=== PATIENT | male | born 1995 | race Caucasian/White ===

== ENCOUNTER 2017-08-29 14:44 | Inpatient (IN) | payer OTHER ==
[2017-08-29] MEDS ORDERED: SODIUM CHLORIDE 0.9% 500 ML INFUS.BAG IV ONE (15:01)
[2017-08-29] MEDS ORDERED: CLINDAMYCIN 600MG PREMIX IVPB 600 MG/50 ML BAG IVPB ONE ×3 (15:01→23:11)
[2017-08-29] MEDS ORDERED: DEXAMETHASONE SOD PHOSPHATE 10 MG/1 ML VIAL IVPUSH ONE (15:01)
--- NOTE | 2017-08-29 15:03 | PDOC ---
Rapid Medical Evaluation Time Seen by Provider: 08/29/17 14:56 Medical Evaluation: I have performed a brief in-person evaluation of this patient. The patient presents with a chief complaint of: Dr. Jacob sent him to r/o peritonsillar abscess. Patient was treated for strep 1 week ago at [place]. Strep and mono cultures were negative. Patient now with swollen neck. Pertinent physical exam findings: hard and soft palate deformity, worse on right side. 3 finger breath trismus. exudate noted on b/l tonsils. swelling to b/l neck. I have ordered the following: IV insert, IV decadron, IV clinda, CT soft tissue neck, labs The patient will proceed to the ED for further evaluation. Discharge Disposition - Diagnosis Peritonsillar abscess - Referrals - Patient Instructions - Post Discharge Activity
[2017-08-29 15:26] LABS: BASO % 0.6 % (0-2.0); EOS % 0.5 % (0-4.5); HEMATOCRIT 44.1 % (35.4-49); HEMOGLOBIN 15.6 GM/dL (11.7-16.9); LYMPH % 16.1 % (8-40); MCH 31.4 pg (25.7-33.7); MCHC 35.3 g/dl (32.0-35.9); MEAN CELL VOLUME 88.8 fl (80-96); MEAN PLT VOLUME 7.8 fl (7.5-11.1); NEUT % 69.8 % (42.8-82.8); PLATELET COUNT 219 K/MM3 (134-434); RBC 4.96 M/mm3 (4.00-5.60); RDW 12.3 % (11.9-15.9); WHITE BLOOD COUNT 11.5 K/mm3 (4.0-10.0)
[2017-08-29 15:58] LABS: ALBUMIN 3.8 g/dl (3.4-5.0); ALK PHOS 66 U/L (45-117); ANION GAP 8 (8-16); BILIRUBIN,TOTAL 0.9 mg/dL (0.2-1.0); BLOOD UREA NITROGEN 11 mg/dL (7-18); CALCIUM 8.7 mg/dL (8.5-10.1); CHLORIDE 99 mmol/L (98-107); CO2 29 mmol/L (21-32); CREATININE 1.1 mg/dL (0.7-1.3); GLUCOSE,RANDOM 110 mg/dL (74-106); SGOT/AST 19 U/L (15-37); SGPT/ALT 38 U/L (12-78); SODIUM 136 mmol/L (136-145); TOT PROT 7.8 g/dl (6.4-8.2)
[2017-08-29] MEDS ORDERED: DEXAMETHASONE SOD PHOSPHATE 10 MG/1 ML VIAL ONE (19:41)
[2017-08-29] MEDS ORDERED: ACETAMINOPHEN 1000 MG/100 ML VIAL (NON FORMULARY) IVPB ONE (19:53)
--- NOTE | 2017-08-29 20:04 | PDOC ---
History of Present Illness - General Chief Complaint: Wound Stated Complaint: THROAT PAIN (PCP SENT) Time Seen by Provider: 08/29/17 14:56 History Source: Patient Exam Limitations: No Limitations - History of Present Illness Initial Comments: 08/29/17 20:04 Pt. is a 22 y/o M with no PMH who presents to the ED with one week of throat pain. Pt. was seen at [facility] last week for similar symptoms and received a bicillin shot and was sent home. Since then his symptoms have gotten worse. He states that it is difficult to swallow, his neck feels swollen and he has had intermittent fevers over the last week. Pt. followed up with his PCP Dr. 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 Denies cough, chills, SOB, chest pain, n/ v/d. Past History - Travel Traveled outside of the country in the last 30 days: No Close contact w/someone who was outside of country & ill: No - Past Medical History Allergies/Adverse Reactions: Allergies Allergy/AdvReac Type Severity Reaction Status Date / Time No Known Allergies Allergy Verified 08/29/17 15:03 COPD: No - Suicide/Smoking/Psychosocial Hx Smoking History: Current every day smoker Have you smoked in the past 12 months: Yes Number of Cigarettes Smoked Daily: 3 Information on smoking cessation initiated: No Hx Alcohol Use: No Drug/Substance Use Hx: Yes Substance Use Type: Marijuana Review of Systems - Review of Systems Able to Perform ROS?: Yes Is the patient limited Occitan proficient: No Constitutional: Yes: Fever (intermittant/tactile). No: Chills, Weakness HEENTM: Yes: Throat Pain, Throat Swelling, Difficulty Swallowing. No: Eye Pain , Ear Pain, Ear Discharge Respiratory: No: Cough, Shortness of Breath, SOB with Exertion, Wheezing Cardiac (ROS): No: Chest Pain, Lightheadedness, Chest Tightness ABD/GI: No: Diarrhea, Nausea, Vomiting : No: Dysuria, Frequency, Pain, Urgency Musculoskeletal: No: Back Pain, Joint Pain, Muscle Pain, Joint Stiffness Integumentary: Yes: Erythema (lips). No: Bruising, Pruritus Neurological: No: Headache, Weakness, Dizziness All Other Systems: Reviewed and Negative *Physical Exam - Vital Signs Last Vital Signs Temp Pulse Resp BP Pulse Ox 99.1 F 105 H 21 126/67 97 08/29/17 14:59 08/29/17 14:59 08/29/17 14:59 08/29/17 14:59 08/29/17 14:59 - Physical Exam General Appearance: Yes: Nourished, Appropriately Dressed. No: Apparent Distress (sitting on exam chair, AAOx3, breathing easily. Lips appear red with a sore) HEENT: positive: EOMI, MARLENE, TMs Normal, Pharyngeal Erythema, Tonsillar Exudate , Tonsillar Erythema (4+ tonsils with exudate, no obvious uvular deviation), Nasal Congestion. negative: Pharynx Normal, Rhinorrhea, Excessive drooling Neck: positive: Tender (anteriorly, appears mildly swollen), Trachea midline, Supple, Lymphadenopathy (R), Lymphadenopathy (L). negative: Rigid, Decreased range of motion Respiratory/Chest: positive: Lungs Clear. negative: Chest Tender, Respiratory Distress, Accessory Muscle Use, Rales, Rhonchi, Stridor, Wheezing Cardiovascular: positive: Regular Rhythm, S1, S2 (present), Tachycardia. negative: Murmur Gastrointestinal/Abdominal: positive: Normal Bowel Sounds, Flat, Soft. 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 NML intact, Fully Oriented, Alert, Normal Mood/ Affect, Normal Response, Motor Strength 5/5 ED Treatment Course - LABORATORY CBC & Chemistry Diagram: 08/29/17 15:14 08/29/17 15:14 - ADDITIONAL ORDERS Additional order review: Laboratory Results 08/29/17 15:14 Sodium 136 Potassium 4.0 Chloride 99 Carbon Dioxide 29 Anion Gap 8 BUN 11 Creatinine 1.1 Creat Clearance w eGFR > 60 Random Glucose 110 H Calcium 8.7 Total Bilirubin 0.9 AST 19 ALT 38 Alkaline Phosphatase 66 Total Protein 7.8 Albumin 3.8 08/29/17 15:14 RBC 4.96 MCV 88.8 MCHC 35.3 RDW 12.3 MPV 7.8 Neutrophils % 69.8 Lymphocytes % 16.1 Monocytes % 13.0 H Eosinophils % 0.5 Basophils % 0.6 Medical Decision Making - Medical Decision Making 08/29/17 20:07 Pt. is a 22 y/o M who presents to the ED with pharyngitis after failing out patient treatment. On exam throat is erythematous with exduates, Tonsils 4+, however no uvular deviation noted. B/L cervical LAD and neck is swollen. Lab work shows a mild leukocytosis with no shift. (-) strep testing, mono testing from [facility]. Pt. given IV dose of clindamycin, and decadron as ordered from [facility]. CT Soft Tissue: No obvious abscess identified. The palatine tonsils demonstrate mild to moderate symmetric prominence which may be d/t acute inflammation representing non-specific enlargement. Several bilateral punctate calcifications are seen within hte palatine tonsils consistent with postinflammatory changes. Non-specific enlarged cervical lymph nodes are noted wich may be pathologic in nature on the basis of size. Given failed out patient treatment with worsening of symptoms, will place order for admission. Dr. Jacob PCP, will admit to [facility] at this time. microblog placed. 08/29/17 22:43 Case discussed with [facility]. Will accept for admission *DC/Admit/Observation/Transfer Diagnosis at time of Disposition: Peritonsillar abscess, LAD (lymphadenopathy) Pharyngitis Qualifiers: Pharyngitis/tonsillitis etiology: unspecified etiology Qualified Code(s): J02.9 - Acute pharyngitis, unspecified - Discharge Dispostion Condition at time of disposition: Stable Decision to Admit order: Yes - Referrals - Patient Instructions - Post Discharge Activity
--- NOTE | 2017-08-29 20:45 | PDOC ---
*Physical Exam - Vital Signs Last Vital Signs Temp Pulse Resp BP Pulse Ox 99.1 F 105 H 21 126/67 97 08/29/17 14:59 08/29/17 14:59 08/29/17 14:59 08/29/17 14:59 08/29/17 14:59 ED Treatment Course - LABORATORY CBC & Chemistry Diagram: 08/29/17 15:14 08/29/17 15:14 - ADDITIONAL ORDERS Additional order review: Laboratory Results 08/29/17 15:14 Sodium 136 Potassium 4.0 Chloride 99 Carbon Dioxide 29 Anion Gap 8 BUN 11 Creatinine 1.1 Creat Clearance w eGFR > 60 Random Glucose 110 H Calcium 8.7 Total Bilirubin 0.9 AST 19 ALT 38 Alkaline Phosphatase 66 Total Protein 7.8 Albumin 3.8 08/29/17 15:14 RBC 4.96 MCV 88.8 MCHC 35.3 RDW 12.3 MPV 7.8 Neutrophils % 69.8 Lymphocytes % 16.1 Monocytes % 13.0 H Eosinophils % 0.5 Basophils % 0.6 - Medications Given in the ED: ED Medications Discontinued Medications Generic Name Dose Route Start Last Admin Trade Name Sudhirq PRN Reason Stop Dose Admin Dexamethasone Sodium Phosphate 10 mg 08/29/17 15:01 08/29/17 19:55 Decadron Injection - IVPUSH 08/29/17 15:02 10 mg ONCE ONE Administration Clindamycin Phosphate 600 mg in 50 mls @ 100 mls/hr 08/29/17 15:01 08/29/17 19:55 Cleocin 600 Mg Premix Ivpb - IVPB 08/29/17 15:30 100 mls/hr ONCE ONE Administration Protocol Sodium Chloride 1,000 ml 08/29/17 15:01 08/29/17 19:55 Normal Saline - IV 08/29/17 15:02 1,000 ml ONCE ONE Administration Medical Decision Making - Medical Decision Making 08/29/17 20:44 agree with care from [facility] *DC/Admit/Observation/Transfer Diagnosis at time of Disposition: Peritonsillar abscess, LAD (lymphadenopathy) Pharyngitis Qualifiers: Pharyngitis/tonsillitis etiology: unspecified etiology Qualified Code(s): J02.9 - Acute pharyngitis, unspecified - Referrals Referrals: Ever Jacob MD [Primary Care Provider] - - Patient Instructions - Post Discharge Activity
--- NOTE | 2017-08-29 21:49 | PN ---
Teaching Attending Note Name of Resident: Don Riggs ATTENDING PHYSICIAN STATEMENT I saw and evaluated the patient. I reviewed the resident's note and discussed the case with the resident. I agree with the resident's findings and plan as documented. SUBJECTIVE: Patient is a 22 year old man with no significant PMH who presents to the ED with one week of throat pain. He was seen at [facility] last week for similar symptoms and received a Bicillin shot and was sent home. His mono and strept tests were negative. Since then his symptoms have gotten worse. He states that it is difficult to swallow, his neck feels swollen and he has had intermittent fevers over the last week. He followed up with his PCP Dr. Jacob who would like the patient admitted for failed out patient treatment. In the ER he got Decadron 10 mg IV, Clindamycin IV and IV fluids. OBJECTIVE: Alert and in no acute distress. Vital Signs Period Temp Pulse Resp BP Sys/High Pulse Ox Last 24 Hr 99.1 F 105 21 126/67 97 HEENT: No Jaundice, eye redness or discharge; PERRLA, EOMI. Normocephalic, atraumatic. External ears are normal and hearing is grossly intact. No nasal discharge. Dry oral mucous membrane, no thrush; enlarged tonsil with whitish exudates. Neck: Supple, tender. Palpable cervical adenopathy; No thyromegaly. No JVD Chest: Good effort. Clear to auscultation and percussion. Heart: Regular. No S3, rub or murmur Abdomen: Not distended, soft, nontender and no HSM. No rebound or guarding. Normoactive bowel sounds. Ext: Peripheral pulses intact. No leg edema. Skin: Warm and dry. No petechiae, rash or ecchymosis. Neuro: Alert. Oriented x3. CN 2-12 grossly intact. Sensation grossly intact in all four extremities and DTR are symmetric. Abnormal Lab Results 08/29/17 08/29/17 15:14 15:14 WBC 11.5 H Monocytes % 13.0 H Random Glucose 110 H Current Medications Generic Name Dose Route Start Last Admin Trade Name Freq PRN Reason Stop Dose Admin Acetaminophen 650 mg 08/29/17 22:15 Tylenol - PO Q4H PRN FEVER Enoxaparin Sodium 40 mg 06/21/18 10:00 Lovenox - SQ DAILY NOLVIA Sodium Chloride 1,000 mls @ 100 mls/hr 08/29/17 22:30 08/29/17 23:07 Normal Saline - IV 100 mls/hr ASDIR NOLVIA Administration Clindamycin Phosphate 600 mg in 50 mls @ 100 mls/hr 08/29/17 22:30 Cleocin 600 Mg Premix Ivpb - IVPB Q8H-IV NOLVIA Protocol ASSESSMENT AND PLAN: 1. Pharyngitis - No evidence of abscess or airway compromise on CT scan. Feeling better after initial treatment in the ER. Will repeat throat swab, rule out Nisseria infection and continue clindamycin 600 mg IV q 6 hours, IV NS and viscous lidocaine swish and swallow. 2. DVT prophylaxis - Lovenox 40 mg SQ q 24 hours. 3. Advance directives - Full code
[2017-08-29] MEDS ORDERED: ACETAMINOPHEN 325 MG TABLET (FP) PO PRN (22:15)
--- NOTE | 2017-08-29 22:29 | HP ---
CHIEF COMPLAINT: odynophagia PCP: Dr. Jacob HISTORY OF PRESENT ILLNESS: 22M w/ no PMH presenting with one week of odynophagia. Per pt, he was in his USOH until a week ago when he awoke with odynophagia. Since then, he has had intermittent fevers as high as 103.6, chills, decreased appetite, sore eyes, nasal congestion, and a sore above his upper lip. He also endorses some drooling , a raspy voice but without hoarseness, a mild headache, 4 episodes of emesis in 1st 2 days of sxs but nothing since, and mild back pain. Pt states that his lips became swollen yesterday as well. He denies conjunctivitis, pain in his ears, hearing loss, runny nose, tongue swelling, oral ulcers, difficulty opening mouth, SOB, wheezing, stridor, chest pain, palpitations, abdominal pain , diarrhea, constipation, dysuria, urethral discharge, any rashes on his body, joint pains, and sick contacts. [facility], was given a bicillin shot, tested negative for strep and mono, and sent home. His sxs did not resolve, he used tylenol and advil without relief, and went to his PCP today. His PCP sent him to [facility] for failed outpt treatment and to r/o peritonsillar abscess. 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 He is currently sexually active, last time 2 weeks ago, endorses 3 sexual partners, all females , uses condoms inconsistently, has oral and vaginal intercourse. He states that his other sexual partners have not had any medical problems that he is aware of. Family History: mother- ITP father- denies Allergies No Known Allergies Allergy (Verified 08/29/17 15:03) HOME MEDICATIONS: REVIEW OF SYSTEMS CONSTITUTIONAL: Absent: weight change present: fever, chills, diaphoresis, generalized weakness, malaise, loss of appetite, HEENT: Absent: rhinorrhea, ear pain, visual changes present: nasal congestion, throat pain, throat swelling, difficulty swallowing, lip swelling CARDIOVASCULAR: Absent: chest pain, syncope, palpitations, irregular heart rate, lightheadedness , peripheral edema RESPIRATORY: Absent: cough, shortness of breath, dyspnea with exertion, orthopnea, wheezing, stridor, hemoptysis GASTROINTESTINAL: Absent: abdominal pain, abdominal distension, diarrhea, constipation, melena, hematochezia present: emesis, nausea GENITOURINARY: Absent: dysuria, frequency, urgency, hesitancy, hematuria, flank pain, genital pain MUSCULOSKELETAL: Absent: myalgia, arthralgia, joint swelling, neck pain present: back pain SKIN: Absent: rash, itching, pallor HEMATOLOGIC/IMMUNOLOGIC: Absent: easy bleeding, easy bruising, lymphadenopathy, frequent infections ENDOCRINE: Absent: unexplained weight gain, unexplained weight loss, heat intolerance, cold intolerance NEUROLOGIC: Absent: headache, focal weakness or paresthesias, dizziness, unsteady gait, seizure, mental status changes, bladder or bowel incontinence PSYCHIATRIC: Absent: anxiety, depression, suicidal or homicidal ideation, hallucinations. PHYSICAL EXAMINATION Vital Signs - 24 hr 08/29/17 14:59 Temperature 99.1 F Pulse Rate 105 H Respiratory 21 Rate Blood Pressure 126/67 O2 Sat by Pulse 97 Oximetry (%) GENERAL: young male, awake, alert, and fully oriented, in no acute distress, diaphoretic HEAD: Normal with no signs of trauma. EYES: Pupils equal, round and reactive to light, extraocular movements intact, sclera anicteric, conjunctiva clear. No lid lag. EARS, NOSE, THROAT: Ears normal, nares patent with nasal congestion, 1cm lesion above upper lip, swollen lips, yellow plaque-like material on tongue, swollen tonsils, tonsillar exudates, uvula midline, no ulcers present NECK: + cervical lymphadenopathy b/l LUNGS: Breath sounds equal, clear to auscultation bilaterally. No wheezes, and no crackles. No accessory muscle use. HEART: tachycardic, regular rhythm, normal S1 and S2 without murmur, rub or gallop. ABDOMEN: Soft, nontender, not distended, normoactive bowel sounds, no guarding, no rebound, no masses. No hepatomegaly or splenomegaly. MUSCULOSKELETAL: Normal range of motion at all joints. No bony deformities or tenderness. No CVA tenderness. UPPER EXTREMITIES: 2+ pulses, warm, well-perfused. No cyanosis. No clubbing. No peripheral edema. LOWER EXTREMITIES: 2+ pulses, warm, well-perfused. No calf tenderness. No peripheral edema. NEUROLOGICAL: Cranial nerves II-XII intact. Normal speech Laboratory Results - last 24 hr 08/29/17 08/29/17 15:14 15:14 WBC 11.5 H RBC 4.96 Hgb 15.6 Hct 44.1 MCV 88.8 MCH 31.4 MCHC 35.3 RDW 12.3 Plt Count 219 MPV 7.8 Absolute Neuts (auto) 8.1 Neutrophils % 69.8 Lymphocytes % 16.1 Monocytes % 13.0 H Eosinophils % 0.5 Basophils % 0.6 Nucleated RBC % 0 Sodium 136 Potassium 4.0 Chloride 99 Carbon Dioxide 29 Anion Gap 8 BUN 11 Creatinine 1.1 Creat Clearance w eGFR > 60 Random Glucose 110 H Calcium 8.7 Total Bilirubin 0.9 AST 19 ALT 38 Alkaline Phosphatase 66 Total Protein 7.[address] soft tissue: no obvious abscess. enlargement and punctate calcifications of palatine tonsils consistent with inflammation. enlarged cervical lymph nodes. ASSESSMENT/PLAN: 22M w/ no PMH presenting with one week of persistent odynophagia s/p bicillin injection 3 days ago. #odynophagia in setting of sepsis -tachycardia, mild tachypnea, leukocytosis without left shift, pt reports fevers as high as 103.6 at home but no fever in hospital -lip lesion, swollen lips, tonsilar enlargement and exudates and cervical lymphadenopathy -no abscess found on CT -f/u throat culture, rapid strep and cx, viral cx, gonorrhea, HIV, and HSV labs -APAP for fever or pain -continue clindamycin 600mg q8h -viscous lidocaine swish and swallow -normal saline at 100cc/hr #FEN/ppx -NS @ 100 -electrolytes wnl -regular diet -no GI ppx indicated -lovenox #dispo -admit to med/surg Case discussed with attending, Dr. Woods. -Don Riggs MD PGY1 Visit type - Emergency Visit Emergency Visit: Yes ED Registration Date: 08/29/17 Care time: The patient presented to the Emergency Department on the above date and was hospitalized for further evaluation of their emergent condition. - New Patient This patient is new to me today: Yes Date on this admission: 08/30/17 - Critical Care Critical Care patient: No Hospitalist Screening - Colonoscopy Questionnaire Colonoscopy Questionnaire: Colonoscopy Questionnaire - Patient: 50 - 75 years old and never had a screening colonoscopy: No History of colon or rectal polyps, or CA: Unknown History of IBD, Crohn's disease or UC: Unknown History of abdominal radiation therapy as a child: Unknown - Relative: 1 with colon or rectal CA, or polyps at age 60 or younger: Unknown Colon or rectal CA diagnosed at age 45 or younger: Unknown Multiple relatives with colon or rectal CA: Unknown - Outcome: Screening Result: Negative Screen
[2017-08-29] MEDS: SODIUM CHLORIDE 1,000 ML IV SCH (23:07)
[2017-08-29] MEDS ORDERED: ACETAMINOPHEN INJECTION 100 ML IVPB ONE (23:11)
[2017-08-30] MEDS: CLINDAMYCIN 600MG PREMIX IVPB 600 MG/50 ML BAG IVPB SCH ×4 (01:25→17:55)
[2017-08-30] MEDS ORDERED: LIDOCAINE VISCOUS 2% ORAL/TOP 20 ML UNIT-DOSE CUP MM PRN (01:54)
[2017-08-30] MEDS ORDERED: CLINDAMYCIN 600MG PREMIX IVPB 600 MG/50 ML BAG IVPB ONE (04:36)
[2017-08-30 07:07] LABS: BASO % 0.2 % (0-2.0); HEMATOCRIT 42.5 % (35.4-49); HEMOGLOBIN 15.4 GM/dL (11.7-16.9); LYMPH % 16.4 % (8-40); MCHC 36.1 g/dl (32.0-35.9); MEAN CELL VOLUME 88.5 fl (80-96); MONO % 7.6 % (3.8-10.2); NEUT % 75.8 % (42.8-82.8); PLATELET COUNT 223 K/MM3 (134-434); RBC 4.81 M/mm3 (4.00-5.60); RDW 12.2 % (11.9-15.9); WHITE BLOOD COUNT 9.1 K/mm3 (4.0-10.0)
--- NOTE | 2017-08-30 08:32 | PN ---
Progress Note (short form) - Note Progress Note: Dr. Romeo to document today. 1 week of swollen tonsils with increasing swelling of neck and compromised swallowing and SOB when seen in office Sunday. Was in [place] ER 08/29/17 and mono spot and throat C/S for strep- there. Was given Bicillin IM on discharge. CT neck: No abscess. Feels better this AM. To add ID consult.
[2017-08-30 08:47] LABS: CHLORIDE 99 mmol/L (98-107); POTASSIUM 4.6 mmol/L (3.5-5.1); SODIUM 136 mmol/L (136-145)
[2017-08-30 09:22] LABS: ALBUMIN 3.5 g/dl (3.4-5.0); ALK PHOS 66 U/L (45-117); ANION GAP 12 (8-16); BILIRUBIN,TOTAL 0.9 mg/dL (0.2-1.0); BLOOD UREA NITROGEN 11 mg/dL (7-18); CALCIUM 8.9 mg/dL (8.5-10.1); CO2 25 mmol/L (21-32); CREATININE 0.8 mg/dL (0.7-1.3); GLUCOSE,RANDOM 107 mg/dL (74-106); SGOT/AST 16 U/L (15-37); SGPT/ALT 33 U/L (12-78); TOT PROT 7.6 g/dl (6.4-8.2)
[2017-08-30] MEDS: SODIUM CHLORIDE 1,000 ML IV SCH ×2 (09:31→21:55)
[2017-08-30] MEDS ORDERED: ENOXAPARIN NA (PORCINE) 40 MG/0.4 ML DISP.SYRIN SQ SCH (10:00)
--- NOTE | 2017-08-30 15:43 | PN ---
Progress Note (short form) - Note Progress Note: ID Consult dictated Acute tonsillitis Agree with work up as ordered Continue clindamycin Add ceftriaxone 2gm q24h Sonogram carotid sheath ENT evaluation
[2017-08-30] MEDS ORDERED: DEXTROSE 5%-WATER 100 ML IVPB ONE (16:08)
--- NOTE | 2017-08-30 16:28 | CONS ---
INFECTIOUS DISEASE CONSULTATION DATE OF CONSULTATION: DATE OF DICTATION: 08/30/2017 A 22-year-old healthy male evaluated for tonsillitis. The patient states he began to experience a sore throat this past week. He presented to [facility] Emergency Room on August 26, 2017, where he was evaluated for complaints of throat pain. He was examined. He reports that a rapid strep test and mononucleosis test were negative. He was given an intramuscular injection of Bicillin. The patient states that subsequently he developed worsening sore throat with inability to swallow or to eat. He presented to the emergency room where a CAT scan of the neck was performed which showed tonsillar hypertrophy but no evidence of peritonsillar abscess. He was treated with clindamycin and Decadron. Cultures were sent. At the present time, he reports improvement after receiving the steroids and clindamycin. He reports less throat pain. He was able to eat today. He denies any respiratory compromise. No stridor or wheeze. No drooling. PAST MEDICAL HISTORY: Negative. ALLERGIES: No known allergies. MEDICATIONS: At the present time include Tylenol, clindamycin, xylocaine. SOCIAL HISTORY: He lives at home. 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 He reports positive tobacco and marijuana use. He is heterosexual, has 3 partners, and engages in unprotected oral and vaginal sex. LABORATORY DATA: White count 9.1; neutrophils 75, lymphocytes 16, monocytes 7; hematocrit 42.5; platelet count 223. BUN 11, creatinine 0.8. PHYSICAL EXAMINATION: General: He is awake and alert. He was actually sleeping when I entered the room. He is in no acute respiratory distress. Vital Signs: Temperature 97.7; blood pressure 116/65; pulse 69, regular; respirations 20 per minute. HEENT: Sclerae are anicteric. Examination of the oropharynx: There is posterior pharynx injection with white exudate. The airway is patent. Neck: Supple with positive submandibular adenopathy, tender. Heart: Sounds S1, S2. Lungs: Clear. No stridor or wheeze. Abdomen: Soft. No palpable liver or spleen. Extremities: Negative for edema. IMPRESSION: Acute tonsillitis/pharyngitis. Agree with workup as ordered. Obtain throat culture, rapid strep test, Monospot, throat culture for GC, HIV testing, empiric antibiotic coverage for usual pathogens including group A strep, Staphylococcus aureus, haemophilus. Other considerations include gonorrhea and fusobacterium. Would obtain sonogram of the carotid sheath to rule out jugular vein thrombosis secondary to fusobacterium. ENT evaluation. Thank you for the kind referral. MOHIT BELL M.D. [place]/[id number]
[2017-08-30] MEDS: CEFTRIAXONE 2 GM in DEXTROSE 5%-WATER 100 ML IVPB SCH (16:33)
--- NOTE | 2017-08-30 18:23 | PN ---
Progress Note, Physician Chief Complaint: Mr Fontana is without complaint today. No further pain on swallowing or swelling. No cp, sob, n/v. - Current Medication List Current Medications: Active Medications Acetaminophen (Tylenol -) 650 mg PO Q4H PRN PRN Reason: FEVER Sodium Chloride (Normal Saline -) 1,000 mls @ 100 mls/hr IV ASDIR NOLVIA Last Admin: 08/30/17 09:31 Dose: 100 mls/hr Clindamycin Phosphate (Cleocin 600 Mg Premix Ivpb -) 600 mg in 50 mls @ 100 mls /hr IVPB Q8H-IV NOLVIA; Protocol Last Admin: 08/30/17 17:55 Dose: 100 mls/hr Ceftriaxone Sodium 2 gm/ (Dextrose) 100 mls @ 100 mls/hr IVPB DAILY NOLVIA; Protocol Last Admin: 08/30/17 16:33 Dose: 100 mls/hr Lidocaine HCl (Xylocaine 2% Viscous Oral -) 20 ml MM Q6HPO PRN PRN Reason: ORAL PAIN/MOUTH SORES - Objective Vital Signs: Vital Signs Temperature 36.5 C 08/30/17 13:25 Pulse Rate 69 08/30/17 13:25 Respiratory Rate 18 08/30/17 13:25 Blood Pressure 111/65 08/30/17 13:25 O2 Sat by Pulse Oximetry (%) 96 08/30/17 01:28 Constitutional: Yes: Well Nourished, No Distress, Calm Eyes: Yes: Conjunctiva Clear, EOM Intact, PERRL HENT: Yes: Atraumatic, Normocephalic Cardiovascular: Yes: Regular Rate and Rhythm. No: Gallop, Murmur, Rub Respiratory: Yes: Regular, CTA Bilaterally. No: Rales, Rhonchi, Wheezes Gastrointestinal: Yes: Normal Bowel Sounds, Soft. No: Distention, Tenderness Extremities: Yes: WNL Edema: No Labs: CBC, BMP 08/30/17 06:00 08/30/17 06:00 Problem List - Problems (1) Pharyngitis Assessment/Plan: -continue clindamycin -ID following and appreciate assistance -consult ENT Code(s): J02.9 - ACUTE PHARYNGITIS, UNSPECIFIED Qualifiers: Pharyngitis/tonsillitis etiology: unspecified etiology Qualified Code(s): J02.9 - Acute pharyngitis, unspecified
[2017-08-31] MEDS: CLINDAMYCIN 600MG PREMIX IVPB 600 MG/50 ML BAG IVPB SCH ×2 (01:04→09:56)
[2017-08-31 07:17] LABS: BASO % 0.5 % (0-2.0); EOS % 0.7 % (0-4.5); HEMATOCRIT 39.3 % (35.4-49); LYMPH % 26.4 % (8-40); MCH 31.7 pg (25.7-33.7); MCHC 35.6 g/dl (32.0-35.9); MEAN PLT VOLUME 7.8 fl (7.5-11.1); NEUT % 61.4 % (42.8-82.8); PLATELET COUNT 241 K/MM3 (134-434); RBC 4.42 M/mm3 (4.00-5.60); RDW 12.1 % (11.9-15.9)
[2017-08-31 07:31] LABS: CHLORIDE 102 mmol/L (98-107); POTASSIUM 4.2 mmol/L (3.5-5.1); SODIUM 138 mmol/L (136-145)
[2017-08-31 07:43] LABS: ANION GAP 9 (8-16); BLOOD UREA NITROGEN 12 mg/dL (7-18); CALCIUM 8.4 mg/dL (8.5-10.1); CO2 27 mmol/L (21-32); CREATININE 0.9 mg/dL (0.7-1.3); GLUCOSE,RANDOM 85 mg/dL (74-106); MAGNESIUM 2.1 mg/dL (1.8-2.4)
--- NOTE | 2017-08-31 09:40 | PN ---
Progress Note (short form) - Note Progress Note: Dr. Romeo to document today. Dr. Decker also suggested ENT MD Carotid sono ordered as per 's suggestion. Await throat C/S Cervical lymphadenopathy decreased.
[2017-08-31] MEDS ORDERED: DEXTROSE 5%-WATER 100 ML IVPB ONE (09:53)
[2017-08-31] MEDS: CEFTRIAXONE 2 GM in DEXTROSE 5%-WATER 100 ML IVPB SCH (09:56)
--- NOTE | 2017-08-31 12:53 | CON.ENT ---
Consult Consult Specialty:: ENT Referred by:: DR Jacob Reason for Consultation:: throat infection - History of Present Illness Chief Complaint: Throat pain for 1 week History of Present Illness: 22M w/ no PMH presenting with one week of odynophagia. Per pt, he was in his USOH until a week ago when he awoke with odynophagia. Since then, he has had intermittent fevers as high as 103.6, chills, decreased appetite, sore eyes, nasal congestion, and a sore above his upper lip. He also endorses some drooling , a raspy voice but without hoarseness, a mild headache, 4 episodes of emesis in 1st 2 days of sxs but nothing since, and mild back pain. Pt states that his lips became swollen yesterday as well. He denies conjunctivitis, pain in his ears, hearing loss, runny nose, tongue swelling, oral ulcers, difficulty opening mouth, SOB, wheezing, stridor, chest pain, palpitations, abdominal pain , diarrhea, constipation, dysuria, urethral discharge, any rashes on his body, joint pains, and sick contacts. Pt went to [facility] this past sunday, was given a bicillin shot, tested negative for strep and mono, and sent home. His sxs did not resolve, he used tylenol and advil without relief, and went to his PCP today. His PCP sent him to [facility] for failed outpt treatment and to r/o peritonsillar abscess. He notes large neck nodes prior to admission - History Source History Provided By: Patient, Medical Record Limitations to Obtaining History: No Limitations - Alcohol/Substance Use Hx Alcohol Use: No - Smoking History Smoking history: Current every day smoker Have you smoked in the past 12 months: Yes Aproximately how many cigarettes per day: 3 Home Medications - Allergies Allergies/Adverse Reactions: Allergies Allergy/AdvReac Type Severity Reaction Status Date / Time No Known Allergies Allergy Verified 08/29/17 15:03 Physical Exam-ENT Vital Signs: Vital Signs Temperature 98.0 F 08/31/17 10:00 Pulse Rate 91 H 08/31/17 10:00 Respiratory Rate 16 08/31/17 10:00 Blood Pressure 135/67 08/31/17 10:00 O2 Sat by Pulse Oximetry (%) 99 08/31/17 09:00 Imaging - Results Cat Scan: Report Reviewed, Image Reviewed Problem List - Problems (1) Acute bacterial tonsillitis Assessment/Plan: Significant tonsilitis, possibly sequelae of viral syndrome, possibly EBV related. Pt much improved on iv meds. Change to po abx, salt water gargles and d /c home. Can f/u as outpatient. Code(s): J03.80 - ACUTE TONSILLITIS DUE TO OTHER SPECIFIED ORGANISMS; B96.89 - OTH BACTERIAL AGENTS THE CAUSE OF DISEASES CLASSD [id number]
[2017-08-31 13:55] VITALS: BP 135/80; PULSE 93; TEMP 97.4
[2017-08-31 14:36] VITALS: BMI 25.8
--- NOTE | 2017-08-31 14:42 | PN ---
Progress Note, Physician History of Present Illness: Feeling much better Less throat pain Able to swallow solids No c/o fever/ chills - Current Medication List Current Medications: Active Medications Acetaminophen (Tylenol -) 650 mg PO Q4H PRN PRN Reason: FEVER Amoxicillin (Amoxicillin -) 500 mg PO TID NOLVIA Sodium Chloride (Normal Saline -) 1,000 mls @ 100 mls/hr IV ASDIR NOLVIA Last Admin: 08/30/17 21:55 Dose: 100 mls/hr Lidocaine HCl (Xylocaine 2% Viscous Oral -) 20 ml MM Q6HPO PRN PRN Reason: ORAL PAIN/MOUTH SORES - Objective Vital Signs: Vital Signs Temperature 97.4 F L 08/31/17 13:53 Pulse Rate 93 H 08/31/17 13:53 Respiratory Rate 20 08/31/17 13:53 Blood Pressure 135/80 08/31/17 13:53 O2 Sat by Pulse Oximetry (%) 99 08/31/17 09:00 Constitutional: Yes: No Distress Eyes: Yes: Conjunctiva Clear HENT: Yes: Pharyngeal Erythema. No: Tonsillar Exudate Neck: Yes: Lymphadenopathy Cardiovascular: Yes: Regular Rate and Rhythm, S1, S2. No: Murmur Respiratory: Yes: CTA Bilaterally Gastrointestinal: No: Hepatomegaly, Splenomegaly Edema: No Labs: CBC, BMP 08/31/17 05:55 08/31/17 05:55 Assessment/Plan Tonsillitis/ Pharyngitis Group F strep Switch to po amoxicillin 500mg tid for additional 7d
[2017-08-31] MEDS ORDERED: AMOXICILLIN 500 MG CAPSULE (FP) PO SCH (14:45)
--- NOTE | 2017-08-31 14:56 | DS ---
Physical Examination Vital Signs: Vital Signs Temperature 36.3 C L 08/31/17 13:53 Pulse Rate 93 H 08/31/17 13:53 Respiratory Rate 20 08/31/17 13:53 Blood Pressure 135/80 08/31/17 13:53 O2 Sat by Pulse Oximetry (%) 99 08/31/17 09:00 Constitutional: Yes: Well Nourished, No Distress, Calm Cardiovascular: Yes: Regular Rate and Rhythm. No: Gallop, Murmur, Rub Respiratory: Yes: Regular, CTA Bilaterally. No: Rales, Rhonchi, Wheezes Gastrointestinal: Yes: Normal Bowel Sounds, Soft. No: Distention, Tenderness Extremities: Yes: WNL Edema: No Labs: CBC, BMP 08/31/17 05:55 08/31/17 05:55 Discharge Summary Reason For Visit: PERITONSILLAR ABSCESS,LYMPHADENOPATHY,PHARYNGITITS Current Active Problems Acute bacterial tonsillitis (Acute) LAD (lymphadenopathy) (Acute) Peritonsillar abscess (Acute) Pharyngitis (Acute) Hospital Course: Mr Fontana is a very pleasant 22 year old admitted for tonsillitis/ pharyngitis that originally failed outpatient therapy. He was started on IV clindamycin and seen by both ENT and ID. His cultures grew Group F strep. He is now swallowing without difficulty. He is safe for discharge home on amoxicillin for 7 more days. Condition: Good - Instructions Diet, Activity, Other Instructions: resume previous diet and activity Referrals: Ever Jacob MD [Primary Care Provider] - Disposition: HOME - Home Medications Comprehensive Discharge Medication List: Ambulatory Orders Amoxicillin - [Amoxicillin 500mg Capsule -] 500 mg PO TID #21 capsule 08/31/17
== END 2017-08-31 16:38 | disposition home or self-care (01) | DRG 113 ==
LOC: JER 14:44 → JERBED 22:49 → J7W 08-30 12:57
PROVIDERS: ADMIT Internal Medicine; ATTEND Internal Medicine
DX: J03.00 Acute streptococcal tonsillitis, unspecified (principal); F17.210 Nicotine dependence, cigarettes, uncomplicated; R59.1 Generalized enlarged lymph nodes; R00.0 Tachycardia, unspecified; D72.829 Elevated white blood cell count, unspecified
CPT/HCPCS: 36415; 70490-TC; 80048; 80053; 83735; 84100; 85025; 86308; 86695; 86696; 87040; 87070; 87077; 87252; 87389; 87529; 99284-25; J0131; J1100; J7030

== ENCOUNTER 2020-03-28 12:45 | Emergency (ER) | payer OTHER | END 2020-03-28 12:53 | disposition home or self-care (01) | LOC: JVIRT 12:45 | DX: Z20.822 Contact with and (suspected) exposure to COVID-19 (principal) | CPT/HCPCS: C9803; G2012-GT; U0003 ==